=== PATIENT | female | born 1950 | race Caucasian/White ===

== ENCOUNTER 2016-09-13 08:34 | Day surgery (SDC) | payer BC ==
[2016-09-13] MEDS ORDERED: LACTATED RINGERS 1,000 ML IV ONE (10:00)
[2016-09-13] MEDS ORDERED: fentaNYL 100 MCG/2 ML VIAL IVP ONE (10:30)
[2016-09-13] MEDS ORDERED: ONDANSETRON 4 MG/2 ML VIAL IVP ONE (10:30)
[2016-09-13] MEDS ORDERED: MIDAZOLAM 2 MG/2 ML VIAL IVP ONE (10:30)
[2016-09-13] MEDS ORDERED: SIMETHICONE 40 MG/0.6 ML 30 ML BOTTLE PO ONE (10:43)
== END 2016-09-13 08:35 | disposition home or self-care (01) ==
PROC: 0DB68ZX Excision of Stomach, Via Natural or Artificial Opening Endoscopic, Diagnostic (ICD-10-PCS; principal; 2016-09-13 09:45)
DX: C16.9 Malignant neoplasm of stomach, unspecified (principal); K31.7 Polyp of stomach and duodenum; F17.210 Nicotine dependence, cigarettes, uncomplicated; I10 Essential (primary) hypertension; I25.10 Atherosclerotic heart disease of native coronary artery without angina pectoris
CPT/HCPCS: 43251; 87081; A9270; J7120

== ENCOUNTER 2017-02-01 20:11 | Outpatient (CLI) | payer BC ==
--- NOTE | 2017-02-02 10:00 | XRAY Report ---
THREE VIEW RIGHT HAND: 02/01/2017 CLINICAL INDICATION: Pain, swelling. FINDINGS: AP, lateral, and oblique views of the right hand demonstrate osteoarthritis of the interph alangeal joints. There is no evidence of acute fracture or dislocation. No radiopaque foreign body is seen in the soft tissues. IMPRESSION: OSTEOARTHRITIS. JOB #: [id number] EXT JOB #:[id number]
== END 2017-02-01 20:12 | disposition home or self-care (01) ==
LOC: DI 20:11
PROVIDERS: ATTEND Family Medicine
DX: M19.041 Primary osteoarthritis, right hand (principal)

== ENCOUNTER 2017-06-06 12:30 | Emergency (ER) | payer BC ==
--- NOTE | 2017-06-06 13:34 | XRAY Preliminary Report ---
Exam: XR SHOULDER 3 VIEW LT IMPRESSION: 1. No acute osseous abnormalities. Normal alignment. 2. Degenerative changes of the left shoulder. [facility] SITE ID: [id number]
--- NOTE | 2017-06-06 13:35 | XRAY Preliminary Report ---
Exam: XR ELBOW 3 VIEW LT IMPRESSION: 1. No acute osseous abnormalities. 2. Degenerative changes of the left elbow. [facility] SITE ID: [id number]
--- NOTE | 2017-06-06 13:36 | XRAY Report ---
EXAM: LEFT SHOULDER RADIOGRAPHY EXAM DATE: 06/06/2017 01:26 PM. CLINICAL HISTORY: Left shoulder pain. Fall. COMPARISON: None. TECHNIQUE: 3 views. FINDINGS: Bones: No acute fracture or bony lesion. Mild degenerative spurring. Type 1/2 acromion. Joints: Narrowing of the left acromioclavicular and left glenohumeral joint. No dislocation. Soft tissues: The visualized hemithorax is unremarkable. No soft tissue swelling. IMPRESSION: 1. No acute osseous abnormalities. Normal alignment. 2. Degenerative changes of the left shoulder. [facility] Referring Provider Line: [phone] SITE ID: [id number]
--- NOTE | 2017-06-06 13:37 | XRAY Report ---
EXAM: LEFT ELBOW RADIOGRAPHY EXAM DATE: 06/06/2017 01:26 PM. CLINICAL HISTORY: Left elbow pain. Fall. COMPARISON: None. TECHNIQUE: 3 views. FINDINGS: Bones: No acute fracture or bony lesion. Degenerative osteophyte formation. Posterior olecranon enthe sophyte. Calcification along the medial distal humeral epicondyle may represent an enthesophyte or os teophyte. Bony excrescence along the proximal radial shaft. No erosions. Joints: Normal alignment. Mild joint space narrowing. No elbow effusion. Soft Tissues: Soft tissue swelling. No radiopaque foreign bodies. IMPRESSION: 1. No acute osseous abnormalities. 2. Degenerative changes of the left elbow. [facility] Referring Provider Line: [phone] SITE ID: [id number]
--- NOTE | 2017-06-06 14:41 | ED Physician Documentation ---
History of Present Illness - Stated complaint Stated Complaint: NECK/LEFT ARM PX-GLF - Chief complaint Chief Complaint: Trauma Ext - History obtained from History obtained from: Patient, Family - History of Present Illness Timing: Yesterday Pain level max: 4 Pain level now: 4 - Additonal information Additional information: Patient is a 67-year-old female who presents to the emergency department with left shoulder and left elbow pain after tripping and slipping in water yesterday at home. Pain is improved with ibuprofen and rest. Worse with movement. No head injury. Did not lose consciousness. No headache. No vomiting. No numbness or tingling. Review of Systems Respiratory: denies: Cough GI: denies: Vomiting Musculoskeletal: denies: Neck pain, Back pain Neurologic: denies: Focal weakness, Numbness, Confused, Altered mental status, Headache, Head injury, LOC PD PAST MEDICAL HISTORY - Past Medical History Past Medical History: Yes Cardiovascular: Hypertension, Murmur Respiratory: None Neuro: Other Endocrine/Autoimmune: Type 2 diabetes, HyPOthyroidism GI: GI bleed, Colon polyps, Other : None HEENT: Other Psych: None Musculoskeletal: Osteoarthritis Derm: Other Other Past Medical History: [place]-left sided facial droop - Past Surgical History Past Surgical History: Yes General: Appendectomy, Colonoscopy, EGD 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 - Present Medications Home Medications: Ambulatory Orders Medication Instructions Recorded Confirmed Magnesium 240 mg PO DAILY 12/28/12 06/06/17 Vitamin B Complex [B Complex] 1 each PO DAILY 12/28/12 07/21/15 Metoprolol Tartrate [Lopressor] 25 mg PO DAILY 12/30/14 06/06/17 amLODIPine [Norvasc] 5 mg PO DAILY 12/30/14 06/06/17 Dexamethasone [Decadron] 4 mg PO DAILY PRN 01/13/15 06/06/17 Cyclobenzaprine [Flexeril] 10 mg PO TID PRN #20 tablet 06/22/16 06/06/17 Ibuprofen [Motrin] 800 mg PO Q8H PRN #30 tablet 06/22/16 06/06/17 Levothyroxine [Synthroid] 1 DAILY 09/13/16 - Allergies Allergies/Adverse Reactions: Allergies Allergy/AdvReac Type Severity Reaction Status Date / Time nifedipine Allergy Intermediate swelling Verified 12/28/12 09:57 lisinopril Allergy Respiratory Verified 12/30/14 21:24 prednisone Allergy Itching Verified 12/30/14 21:24 - Social History Does the pt smoke?: No Smoking Status: Never smoker Does the pt drink ETOH?: No Does the pt have substance abuse?: No - Immunizations Immunizations are current?: Yes - POLST Patient has POLST: No PD ED PE NORMAL - Vitals Vital signs reviewed: Yes - General General: Alert and oriented X 3, No acute distress, Well developed/nourished - HEENT HEENT: PERRL, Ears normal, Moist mucous membranes, Pharynx benign - Neck Neck: Supple, no meningeal sign, No bony TTP - Cardiac Cardiac: RRR, Strong equal pulses - Respiratory Respiratory: No respiratory distress, Clear bilaterally - Abdomen Abdomen: Soft, Non tender, Non distended - Back Back: No spinal TTP - Derm Derm: Warm and dry - Extremities Extremities: No deformity, Other (Mild diffuse tenderness about the left elbow and left shoulder. No point tenderness. Worse with active range of motion and passive range of motion. Otherwise normal examination of the shoulder, spine and left upper extremity. No tenderness over the scapula. Neurovascularly intact including the axillary nerve) - Neuro Neuro: Alert and oriented X 3 - Psych Psych: Normal mood, Normal affect Results - Vitals Vitals: Vital Signs - 24 hr 06/06/17 06/06/17 12:41 14:50 Temperature 36.4 C L 36.0 C L Heart Rate 85 79 Respiratory 20 18 Rate Blood Pressure 165/87 H 145/80 H O2 Saturation 97 96 Oxygen O2 Source Room air - Rads (name of study) Left shoulder x-ray Radiology: Prelim report reviewed, EMP read contemporaneously, See rad report ( No acute bony abnormality) Left elbow x-ray Radiology: Prelim report reviewed, EMP read contemporaneously, See rad report ( No acute abnormality) PD MEDICAL DECISION MAKING - ED course Complexity details: reviewed results, re-evaluated patient, considered differential, d/w patient ED course: Patient is a 67-year-old female who has left elbow and left shoulder pain after a fall at home. No acute findings on x-ray. Placed in a sling for comfort. She states she will use Motrin and Tylenol as needed for pain. She is well- appearing, nontoxic. Neurovascularly intact. No neck or back discomfort or tenderness. Patient counseled regarding signs and symptoms for which I believe and urgent re-evaluation would be necessary. Patient with good understanding of and agreement to plan and is comfortable going home at this time This document was made in part using voice recognition software. While efforts are made to proofread this document, sound alike and grammatical errors may occur. No head injury Departure - Departure Disposition: 01 Home, Self Care Clinical Impression: Muscle strain Shoulder contusion Qualifiers: Encounter type: initial encounter Laterality: left Qualified Code(s): S40.012A - Contusion of left shoulder, initial encounter Elbow contusion Qualifiers: Encounter type: initial encounter Laterality: left Qualified Code(s): S50.02XA - Contusion of left elbow, initial encounter Condition: Good Instructions: ED Strain Muscle Ext Follow-Up: Amber Escoto MD [Primary Care Provider] - Within 1 week Comments: Use the sling for the next 2-3 days to help with your pain. Return if you worsen. Your xrays are normal today. Discharge Date/Time: 06/06/17 14:57
[2017-06-06 14:50] VITALS: BP 145/80
== END 2017-06-06 14:57 | disposition home or self-care (01) ==
LOC: ED 12:30
DX: S40.012A Contusion of left shoulder, initial encounter (principal); S50.02XA Contusion of left elbow, initial encounter; T14.8XXA Other injury of unspecified body region, initial encounter; W01.0XXA Fall on same level from slipping, tripping and stumbling without subsequent striking against object, initial encounter; Y92.019 Unspecified place in single-family (private) house as the place of occurrence of the external cause; I10 Essential (primary) hypertension; E11.9 Type 2 diabetes mellitus without complications; E03.9 Hypothyroidism, unspecified; M19.90 Unspecified osteoarthritis, unspecified site; Z86.010 Personal history of colon polyps
CPT/HCPCS: 99283

== ENCOUNTER 2017-08-23 14:57 | Outpatient (CLI) | payer BC | END 2017-08-23 14:58 | disposition short-term general hospital (02) | LOC: EMS 14:57 | PROVIDERS: ATTEND Surgery | DX: R07.9 Chest pain, unspecified (principal); R11.0 Nausea; R53.1 Weakness; R42 Dizziness and giddiness | CPT/HCPCS: A0425; A0427 ==

== ENCOUNTER 2018-03-03 12:53 | Outpatient (CLI) | payer BC ==
--- NOTE | 2018-03-04 14:03 | XRAY Report ---
Reason: sudden onset neck pain, swelling,spasms waking at night Procedure Date: 03/03/2018 Accession Number: [id number] / [id number] Procedure: XR - Cervical Spine 2 View CPT Code: FULL RESULT: EXAM: CERVICAL SPINE RADIOGRAPHY EXAM DATE: 03/03/2018 01:33 PM. CLINICAL HISTORY: Sudden onset neck pain, swelling,spasms waking at night. COMPARISONS: None. TECHNIQUE: 3 views. FINDINGS: Straightening of the cervical spine, similar in appearance when compared to 06/26/2016 radiographs. Mild degenerative diskogenic changes at the C5-C6 and C6-C7 levels, stable. The prevertebral soft tissues appear unremarkable. IMPRESSION: Straightening of the cervical spine and mild degenerative changes, stable when compared to 06/26/2016. [facility]
== END 2018-03-03 12:54 | disposition home or self-care (01) ==
LOC: DI 12:53
PROVIDERS: ATTEND Family Medicine
DX: M47.812 Spondylosis without myelopathy or radiculopathy, cervical region (principal)
CPT/HCPCS: 72040

== ENCOUNTER 2018-08-25 14:42 | Outpatient (CLI) | payer BC ==
[2018-08-25 17:32] LABS: BASOPHILS # (AUTO) 0.1 10^3/uL (0.0-0.1); BASOPHILS % (AUTO) 1.2 %; EOSINOPHILS # (AUTO) 0.2 10^3/uL (0.0-0.7); EOSINOPHILS % (AUTO) 2.7 %; HGB - HEMOGLOBIN 14.8 g/dL (12.0-16.0); LYMPHOCYTES # (AUTO) 3.5 10^3/uL (1.5-3.5); MEAN CORPUSCULAR HEMOGLOBIN 29.5 pg (27.0-31.0); MEAN CORPUSCULAR HGB CONC 33.3 g/dL (32.0-36.0); MEAN CORPUSCULAR VOLUME 88.7 fL (81.0-99.0); MEAN PLATELET VOLUME 8.5 fL (7.9-10.8); MONOCYTES # (AUTO) 0.7 10^3/uL (0.0-1.0); MONOCYTES % (AUTO) 8.6 %; NEUTROPHILS # (AUTO) 3.8 10^3/uL (1.5-6.6); NEUTROPHILS % (AUTO) 45.5 %; PLT - PLATELET COUNT 370 10^3/uL (130-450); RED CELL DISTRIBUTION WIDTH 13.6 % (12.0-15.0); WHITE BLOOD COUNT 8.4 x10^3/uL (4.8-10.8)
[2018-08-25 17:48] LABS: ALBUMIN 4.6 g/dL (3.2-5.5); ALBUMIN/GLOBULIN RATIO 1.1 (1.0-2.2); BILIRUBIN,TOTAL 0.8 mg/dL (0.2-1.0); CALCIUM 9.4 mg/dL (8.5-10.3); CREATININE 0.6 mg/dL (0.4-1.0); TOTAL PROTEIN 8.6 g/dL (6.7-8.2)
[2018-08-25 18:03] LABS: THYROID STIMULATING HORMONE 4.21 uIU/mL (0.34-5.60)
[2018-08-25 18:04] LABS: FREE T4 (FREE THYROXINE) 0.67 ng/dL (0.58-1.64)
[2018-08-25 18:08] LABS: TOTAL T3 1.37 ng/mL (0.87-1.78)
[2018-08-25 18:46] LABS: HB2 TOTAL 16.4 g/dL; HEMOGLOBIN A1C 0.9 g/dL; HEMOGLOBIN A1C % 7.2 % (4.6-6.2)
== END 2018-08-25 14:43 | disposition home or self-care (01) ==
LOC: LAB.F 14:42
PROVIDERS: ATTEND Family Medicine
DX: E10.9 Type 1 diabetes mellitus without complications (principal); E03.9 Hypothyroidism, unspecified; D64.9 Anemia, unspecified; R53.83 Other fatigue
CPT/HCPCS: 36415; 80053; 82043; 82626; 83036; 84439; 84443; 84480; 84481; 85025

== ENCOUNTER 2019-03-22 12:27 | Outpatient (CLI) | payer BC ==
[2019-03-22 17:32] LABS: HB2 TOTAL 14.5 g/dL; HEMOGLOBIN A1C 0.7 g/dL; HEMOGLOBIN A1C % 6.6 % (4.6-6.2)
[2019-03-22 17:36] LABS: CEA - CARCINOEMBRYONIC ANTIGEN 2.2 ng/mL
[2019-03-22 17:38] LABS: THYROID STIMULATING HORMONE 2.83 uIU/mL (0.34-5.60)
[2019-03-22 17:39] LABS: FREE T4 (FREE THYROXINE) 0.74 ng/dL (0.58-1.64)
[2019-03-22 17:43] LABS: TOTAL T3 1.33 ng/mL (0.87-1.78)
[2019-03-22 17:44] LABS: FERRITIN 45.7 ng/mL (11.0-306.8)
== END 2019-03-22 12:28 | disposition home or self-care (01) ==
LOC: LAB.S 12:27
PROVIDERS: ATTEND Family Medicine
DX: E03.9 Hypothyroidism, unspecified (principal); R53.83 Other fatigue; E11.9 Type 2 diabetes mellitus without complications; C16.9 Malignant neoplasm of stomach, unspecified; E55.9 Vitamin D deficiency, unspecified; D64.9 Anemia, unspecified
CPT/HCPCS: 36415; 82306; 82378; 82626; 82728; 83036; 84439; 84443; 84480; 84481

== ENCOUNTER 2019-12-14 21:21 | Emergency (ER) | payer BC ==
--- NOTE | 2019-12-14 21:23 | ED Physician Documentation ---
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 Presents today with worsening abdominal pain and distention.) Review of Systems Constitutional: reports: Reviewed and negative Eyes: reports: Reviewed and negative Ears: reports: Reviewed and negative Nose: reports: Reviewed and negative Throat: reports: Reviewed and negative Cardiac: reports: Reviewed and negative Respiratory: reports: Reviewed and negative GI: reports: Abdominal Pain : reports: Reviewed and negative Skin: reports: Reviewed and negative Musculoskeletal: reports: Reviewed and negative Neurologic: reports: Reviewed and negative Psychiatric: reports: Reviewed and negative Endocrine: reports: Reviewed and negative Immunocompromised: reports: Reviewed and negative PD PAST MEDICAL HISTORY - Past Medical History Cardiovascular: Hypertension, Murmur Respiratory: None Endocrine/Autoimmune: Type 2 diabetes, HyPOthyroidism GI: GI bleed, Colon polyps, Other : None HEENT: Other Psych: None Musculoskeletal: Osteoarthritis Derm: Other - Past Surgical History Past Surgical History: Yes General: Appendectomy, Colonoscopy, EGD 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 - Present Medications Home Medications: Ambulatory Orders Medication Instructions Recorded Confirmed Magnesium 240 mg PO DAILY 12/28/12 06/06/17 Vitamin B Complex [B Complex] 1 each PO DAILY 12/28/12 07/21/15 Metoprolol Tartrate [Lopressor] 25 mg PO DAILY 12/30/14 06/06/17 amLODIPine [Norvasc] 5 mg PO DAILY 12/30/14 06/06/17 dexAMETHasone [Decadron] 4 mg PO DAILY PRN 01/13/15 06/06/17 Cyclobenzaprine [Flexeril] 10 mg PO TID PRN #20 tablet 06/22/16 06/06/17 Ibuprofen [Motrin] 800 mg PO Q8H PRN #30 tablet 06/22/16 06/06/17 Levothyroxine [Synthroid] 1 DAILY 09/13/16 Hydrocodone/Acetaminophen [[place] 1 each PO Q6HR PRN #14 tablet 12/15/19 5-325 Tablet] Ondansetron Odt [Zofran Odt] 4 mg TL Q6H PRN #10 tablet 12/15/19 - Allergies Allergies/Adverse Reactions: Allergies Allergy/AdvReac Type Severity Reaction Status Date / Time nifedipine Allergy Intermediate swelling Verified 12/14/19 21:28 lisinopril Allergy Respiratory Verified 12/14/19 21:28 prednisone Allergy Itching Verified 12/14/19 21:28 - Social History Does the pt smoke?: No Smoking Status: Never smoker Does the pt drink ETOH?: No Does the pt have substance abuse?: No - Immunizations Immunizations are current?: Yes - POLST Patient has POLST: No PD ED PE NORMAL - Vitals Vital signs reviewed: Yes - General General: Alert and oriented X 3, No acute distress - HEENT HEENT: PERRL - Neck Neck: Supple, no meningeal sign - Cardiac Cardiac: RRR, No murmur - Respiratory Respiratory: Clear bilaterally - Abdomen Abdomen: Normal bowel sounds, Soft, Other (There is approximately 4 cm palpable mass in the epigastrium.There is also hepatomegaly noted.There is no midline abdominal pulsatile mass) - Back Back: No CVA TTP, No spinal TTP - Derm Derm: Warm and dry - Extremities Extremities: No deformity - Neuro Neuro: Alert and oriented X 3, educational advisor 2-12 intact, No motor deficit, No sensory deficit, Normal speech - Psych Psych: Normal mood, Normal affect Results - Vitals Vitals: Vital Signs - 24 hr 12/14/19 12/14/19 12/14/19 21:26 21:50 22:38 Temperature 37.2 C 37.4 C Heart Rate 102 H 99 99 Respiratory 18 19 18 Rate Blood Pressure 145/77 H 158/86 H 153/84 H O2 Saturation 97 96 97 12/14/19 12/15/19 12/15/19 23:30 01:39 02:46 Temperature Heart Rate 84 87 108 H Respiratory 18 20 21 Rate Blood Pressure 140/74 H 146/79 H 139/79 H O2 Saturation 97 94 96 Oxygen O2 Source Room air - Labs Labs: Laboratory Tests 12/14/19 12/14/19 12/14/19 22:07 22:07 22:07 WBC 10.6 RBC 5.28 Hgb 14.6 Hct 46.0 MCV 87.1 MCH 27.7 MCHC 31.7 L RDW 13.8 Plt Count 424 MPV 9.1 Neut # (Auto) 7.2 H Lymph # (Auto) 2.1 Calvert # (Auto) 1.1 H Eos # (Auto) 0.1 Baso # (Auto) 0.1 Absolute Nucleated RBC 0.00 Nucleated RBC % 0.0 PT 13.9 H INR 1.2 APTT 32.7 Sodium 137 Potassium 3.7 Chloride 101 Carbon Dioxide 28 Anion Gap 8.0 BUN 15 Creatinine 0.6 Estimated GFR (MDRD) 99 Glucose 113 H Lactic Acid Calcium 9.3 Magnesium 2.4 Total Bilirubin 1.5 H Direct Bilirubin 0.3 AST 53 H ALT 35 Alkaline Phosphatase 258 H Total Creatine Kinase 108 Troponin I High Sens B-Natriuretic Peptide Total Protein 8.8 H Albumin 4.2 Globulin 4.6 H Lipase 38 TSH Urine Color Urine Clarity Urine pH Ur Specific [place] Urine Protein Urine Glucose (UA) Urine Ketones Urine Occult Blood Urine Nitrite Urine Bilirubin Urine Urobilinogen Ur Leukocyte Esterase Ur Microscopic Review Urine Culture Comments Urine Opiates Screen Ur Oxycodone Screen Urine Methadone Screen Ur Propoxyphene Screen Ur Barbiturates Screen Ur Tricyclics Screen Ur Phencyclidine Scrn Ur Amphetamine Screen U Methamphetamines Scrn U Benzodiazepines Scrn Urine Cocaine Screen U Cannabinoids Screen Ethyl Alcohol < 5.0 12/14/19 12/14/19 12/14/19 22:07 22:07 22:07 WBC RBC Hgb Hct MCV MCH MCHC RDW Plt Count MPV Neut # (Auto) Lymph # (Auto) [place]vert # (Auto) Eos # (Auto) Baso # (Auto) Absolute Nucleated RBC Nucleated RBC % PT INR APTT Sodium Potassium Chloride Carbon Dioxide Anion Gap BUN Creatinine Estimated GFR (MDRD) Glucose Lactic Acid 1.2 Calcium Magnesium Total Bilirubin Direct Bilirubin AST ALT Alkaline Phosphatase Total Creatine Kinase Troponin I High Sens B-Natriuretic Peptide 36 Total Protein Albumin Globulin Lipase TSH 2.57 Urine Color Urine Clarity Urine pH Ur Specific [place] Urine Protein Urine Glucose (UA) Urine Ketones Urine Occult Blood Urine Nitrite Urine Bilirubin Urine Urobilinogen Ur Leukocyte Esterase Ur Microscopic Review Urine Culture Comments Urine Opiates Screen Ur Oxycodone Screen Urine Methadone Screen Ur Propoxyphene Screen Ur Barbiturates Screen Ur Tricyclics Screen Ur Phencyclidine Scrn Ur Amphetamine Screen U Methamphetamines Scrn U Benzodiazepines Scrn Urine Cocaine Screen U Cannabinoids Screen Ethyl Alcohol 12/14/19 12/14/19 22:07 22:24 WBC RBC Hgb Hct MCV MCH MCHC RDW Plt Count MPV Neut # (Auto) Lymph # (Auto) [place] # (Auto) Eos # (Auto) Baso # (Auto) Absolute Nucleated RBC Nucleated RBC % PT INR APTT Sodium Potassium Chloride Carbon Dioxide Anion Gap BUN Creatinine Estimated GFR (MDRD) Glucose Lactic Acid Calcium Magnesium Total Bilirubin Direct Bilirubin AST ALT Alkaline Phosphatase Total Creatine Kinase Troponin I High Sens 3.9 B-Natriuretic Peptide Total Protein Albumin Globulin Lipase TSH Urine Color YELLOW Urine Clarity CLEAR Urine pH 7.0 Ur Specific [place] 1.010 Urine Protein NEGATIVE Urine Glucose (UA) NEGATIVE Urine Ketones NEGATIVE Urine Occult Blood NEGATIVE Urine Nitrite NEGATIVE Urine Bilirubin NEGATIVE Urine Urobilinogen 0.2 (NORMAL) Ur Leukocyte Esterase NEGATIVE Ur Microscopic Review NOT INDICATED Urine Culture Comments NOT INDICATED Urine Opiates Screen NEGATIVE Ur Oxycodone Screen NEGATIVE Urine Methadone Screen NEGATIVE Ur Propoxyphene Screen NEGATIVE Ur Barbiturates Screen NEGATIVE Ur Tricyclics Screen NEGATIVE Ur Phencyclidine Scrn NEGATIVE Ur Amphetamine Screen NEGATIVE U Methamphetamines Scrn NEGATIVE U Benzodiazepines Scrn NEGATIVE Urine Cocaine Screen NEGATIVE U Cannabinoids Screen NEGATIVE Ethyl Alcohol PD MEDICAL DECISION MAKING - ED course Complexity details: reviewed results, re-evaluated patient, considered differential (History and exam are concerning for a gastric mass with liver mets. Imaging does confirm this. Her imaging shows a malignant mass in the gastric wall measuring at least 4 cm and findings highly suspicious for diffuse hepatic metastasis and malignant peridiaphragmatic adenopathy.), d/w patient (Had a lengthy discussion with this patient about her imaging results that are concerning for metastatic cancer to the liver from the gastric wall. I did offer to admit her and/or transfer her to a higher level of care she wants to be discharged.She assumes all responsibility and liability.), other (I had a lengthy discussion with her regarding her imaging results I did offer admission to this hospital I did also offer to transfer the patient to higher level of care that has inpatient oncology. The patient states that she wants to be discharged home and will call her primary care provider prov) Departure - Departure Disposition: 01 Home, Self Care Clinical Impression: Gastric mass, Liver metastases Condition: Stable Instructions: Liver Follow-Up: Amber Escoto MD [Primary Care Provider] - Tomorrow Prescriptions: Hydrocodone/Acetaminophen [[place] 5-325 Tablet] 1 each PO Q6HR PRN #14 tablet PRN Reason: Pain Ondansetron Odt [Zofran Odt] 4 mg TL Q6H PRN #10 tablet PRN Reason: Nausea / Vomiting Comments: Follow-up with your primary care provider on Tuesday.Follow-up with an oncologist on Tuesday. Your CAT scan shows an impression of a malignant mass in the gastric wall measuring at least 4 cm and findings highly suspicious for diffuse hepatic metastasis and malignant bill-diaphragmatic adenopathy.
[2019-12-14] MEDS ORDERED: SODIUM CHLORIDE 0.9% 1,000 ML IV STA (21:55)
[2019-12-14] MEDS ORDERED: MORPHINE 2 MG/ML CARPUJECT IVP STA (21:55)
[2019-12-14] MEDS ORDERED: ONDANSETRON 4 MG/2 ML VIAL IVP STA (21:55)
[2019-12-14 22:13] LABS: BASOPHILS # (AUTO) 0.1 10^3/uL (0.0-0.1); EOSINOPHILS # (AUTO) 0.1 10^3/uL (0.0-0.7); EOSINOPHILS % (AUTO) 0.6 %; HGB - HEMOGLOBIN 14.6 g/dL (12.0-16.0); LYMPHOCYTES # (AUTO) 2.1 10^3/uL (1.5-3.5); LYMPHOCYTES % (AUTO) 19.4 %; MEAN CORPUSCULAR HEMOGLOBIN 27.7 pg (27.0-31.0); MEAN CORPUSCULAR HGB CONC 31.7 g/dL (32.0-36.0); MEAN CORPUSCULAR VOLUME 87.1 fL (81.0-99.0); MEAN PLATELET VOLUME 9.1 fL (7.9-10.8); MONOCYTES # (AUTO) 1.1 10^3/uL (0.0-1.0); MONOCYTES % (AUTO) 10.7 %; NEUTROPHILS # (AUTO) 7.2 10^3/uL (1.5-6.6); NEUTROPHILS % (AUTO) 67.9 %; PLT - PLATELET COUNT 424 10^3/uL (130-450); RED BLOOD COUNT 5.28 10^6/uL (4.20-5.40); RED CELL DISTRIBUTION WIDTH 13.8 % (12.0-15.0); WHITE BLOOD COUNT 10.6 x10^3/uL (4.8-10.8)
[2019-12-14 22:22] LABS: INR 1.2 (0.8-1.2); PT - PROTHROMBIN TIME 13.9 secs (9.9-12.6)
[2019-12-14 22:29] LABS: PARTIAL THROMBOPLASTIN TIME 32.7 secs (24.9-33.3)
[2019-12-14 22:30] LABS: MUDS CUTOFF CONCENTRATIONS CUTOFF CONC BELOW:
[2019-12-14 22:31] LABS: BILIRUBIN,URINE NEGATIVE (NEGATIVE); GLUCOSE, URINE (UA) NEGATIVE (NEGATIVE); KETONES,URINE (UA) NEGATIVE (NEGATIVE); LEUKOCYTE ESTERASE, URINE NEGATIVE (NEGATIVE); NITRITE,URINE NEGATIVE (NEGATIVE); OCCULT BLOOD,URINE NEGATIVE (NEGATIVE); PROTEIN,URINE NEGATIVE (NEGATIVE); UROBILINOGEN,URINE 0.2 (NORMAL) E.U./dL (NORMAL)
[2019-12-14 22:32] LABS: CLARITY,URINE CLEAR (CLEAR)
[2019-12-14 22:33] LABS: ALBUMIN 4.2 g/dL (3.2-5.5); ALKALINE PHOSPHATASE 258 IU/L (42-121); ALT ALANINE AMINOTRANSFERASE 35 IU/L (10-60); AST ASPARTATE AMINOTRANSFERASE 53 IU/L (10-42); BILIRUBIN,DIRECT 0.3 mg/dL (0.1-0.5); BILIRUBIN,TOTAL 1.5 mg/dL (0.2-1.0); BUN - BLOOD UREA NITROGEN 15 mg/dL (6-20); CALCIUM 9.3 mg/dL (8.5-10.3); CARBON DIOXIDE - CO2 28 mmol/L (21-32); CHLORIDE 101 mmol/L (101-111); CK- CREATINE KINASE 108 IU/L (22-269); CREATININE 0.6 mg/dL (0.4-1.0); GLUCOSE 113 mg/dL (70-100); LIPASE 38 U/L (22-51); MAGNESIUM 2.4 mg/dL (1.7-2.8); SODIUM 137 mmol/L (135-145); TOTAL PROTEIN 8.8 g/dL (6.7-8.2)
[2019-12-14 22:42] LABS: AMPHETAMINE SCREEN,URINE NEGATIVE (NEGATIVE); BENZODIAZEPINES SCREEN, URINE NEGATIVE (NEGATIVE); COCAINE SCREEN URINE NEGATIVE (NEGATIVE); METHADONE SCREEN, URINE NEGATIVE (NEGATIVE); METHAMPHETAMINES SCREEN, URINE NEGATIVE (NEGATIVE); OPIATE SCREEN, URINE NEGATIVE (NEGATIVE); OXYCODONE SCREEN, URINE NEGATIVE (NEGATIVE); PROPOXYPHENE SCREEN, URINE NEGATIVE (NEGATIVE); TRICYCLIC ANTIDEPRESSANT,URINE NEGATIVE (NEGATIVE)
[2019-12-14] MEDS ORDERED: IOVERSOL 320 100 ML VIAL IVP ONE (23:58)
[2019-12-15] MEDS ORDERED: IOVERSOL 320 100 ML VIAL IVP ONE (01:55)
[2019-12-15 02:47] VITALS: BP 139/79
--- NOTE | 2019-12-15 09:18 | XRAY Report ---
PROCEDURE: Chest 1 View X-Ray INDICATIONS: cp TECHNIQUE: One view of the chest was acquired. COMPARISON: 01/16/2013 FINDINGS: Surgical changes and devices: None. Lungs and pleura: No pleural effusions or pneumothorax. Lungs are clear. Mediastinum: Mildly tortuous thoracic aorta is seen. Heart size is enlarged. Bones and chest wall: No suspicious bony lesions. Overlying soft tissues appear unremarkable. IMPRESSION: Mild cardiomegaly. No acute pulmonary pathology. Reviewed by: Radhames Braxton MD on 12/15/2019 9:17 AM PDT Approved by: Radhames Braxton MD on 12/15/2019 9:17 AM PDT Station ID: [id number]
--- NOTE | 2019-12-15 09:47 | CT Report ---
PROCEDURE: Abdomen/Pelvis W INDICATIONS: abd pain CONTRAST: IV CONTRAST: Optiray 320 ml: 100 PO CONTRAST: *NO PO CONTRAST TECHNIQUE: After the administration of oral and intravenous contrast, 5 mm thick sections acquired from the diap hragms to the symphysis. 5 mm thick coronal and sagittal reformats were acquired. For radiation dos e reduction, the following was used: automated exposure control, adjustment of mA and/or kV accordin g to patient size. COMPARISON: None. FINDINGS: Image quality: Excellent. ABDOMEN: Lung bases: Atelectasis in posterior aspect of bilateral lower lobes are seen. Heart size is normal. Solid organs: Liver is enlarged and measures 21 cm in length. Hypodense lesions are seen scattered th roughout liver parenchyma measures up to 11 x 9 cm in size in right hepatic lobe and up to 6.9 x 6.1 cm in size in left hepatic lobe Spleen is normal in size and enhancement. Gallbladder is within eric l limits. Biliary system is non dilated. Pancreas enhances normally. No adrenal nodules. Kidneys demonstrate normal size and enhancement, without hydronephrosis. 4.6 cm right midpole renal cyst is s een. Peritoneum and bowel: There is an ill-defined hypodense lesion involving anterior wall of greater cur vature of stomach measures approximately 3.6 x 4.3 cm in size. No bowel obstruction. No small bowel o r colon wall thickening. No free fluid of free air. Nodes and vessels: No retroperitoneal lymphadenopathy by size criteria. 1.8 cm peridiaphragmatic lymp h node is seen. Additional enlarged lymph nodes are also noted anterior to the liver. Aorta and infer ior vena cava are normal in size. Miscellaneous: No ventral hernias. PELVIS: Genitourinary: Bladder wall thickness is normal. Miscellaneous: No inguinal hernias or adenopathy. Bones: No suspicious bony lesions. No vertebral body compression fractures. IMPRESSION: 1. Finding is concerning for malignant mass involving anterior wall of greater curvature of the stoma ch, GI correlation is recommended. 2. Extensive liver metastases as above. 3. Apparent diaphragmatic lymphadenopathy likely represent metastatic disease. 4. Bibasilar dependent atelectasis. No significant discrepancies. Reviewed by: Radhames Braxton MD on 12/15/2019 9:46 AM PDT Approved by: Radhames Braxton MD on 12/15/2019 9:46 AM PDT Station ID: [id number]
== END 2019-12-15 03:05 | disposition home or self-care (01) ==
LOC: ED 21:21
DX: C16.8 Malignant neoplasm of overlapping sites of stomach (principal); C78.7 Secondary malignant neoplasm of liver and intrahepatic bile duct; C77.1 Secondary and unspecified malignant neoplasm of intrathoracic lymph nodes; I10 Essential (primary) hypertension; E11.9 Type 2 diabetes mellitus without complications
CPT/HCPCS: 36415; 71045; 74177; 80048; 80076; 80306; 80320; 81003; 82550; 83605; 83690; 83735; 83880; 84443; 84484; 85025; 85610; 85730; 93005; 96360; 99283; 99284; Q9967; 81001; 87086

== ENCOUNTER 2020-01-07 12:31 | Outpatient (CLI) | payer BC ==
[2020-01-07 15:10] LABS: BASOPHILS # (AUTO) 0.1 10^3/uL (0.0-0.1); BASOPHILS % (AUTO) 1.5 %; EOSINOPHILS # (AUTO) 0.3 10^3/uL (0.0-0.7); EOSINOPHILS % (AUTO) 3.8 %; HGB - HEMOGLOBIN 14.4 g/dL (12.0-16.0); LYMPHOCYTES # (AUTO) 1.4 10^3/uL (1.5-3.5); LYMPHOCYTES % (AUTO) 17.2 %; MEAN CORPUSCULAR VOLUME 87.1 fL (81.0-99.0); MEAN PLATELET VOLUME 9.8 fL (7.9-10.8); MONOCYTES % (AUTO) 12.2 %; NEUTROPHILS # (AUTO) 5.1 10^3/uL (1.5-6.6); PLT - PLATELET COUNT 565 10^3/uL (130-450); RED BLOOD COUNT 5.33 10^6/uL (4.20-5.40); RED CELL DISTRIBUTION WIDTH 14.8 % (12.0-15.0); WHITE BLOOD COUNT 7.9 x10^3/uL (4.8-10.8)
[2020-01-07 15:58] LABS: PARTIAL THROMBOPLASTIN TIME 30.1 secs (24.9-33.3)
[2020-01-07 16:03] LABS: ALBUMIN 3.5 g/dL (3.2-5.5); ALBUMIN/GLOBULIN RATIO 0.7 (1.0-2.2); BILIRUBIN,TOTAL 1.2 mg/dL (0.2-1.0); CALCIUM 9.6 mg/dL (8.5-10.3); CREATININE 0.7 mg/dL (0.4-1.0); TOTAL PROTEIN 8.6 g/dL (6.7-8.2)
[2020-01-07 16:10] LABS: INR 1.2 (0.8-1.2); PT - PROTHROMBIN TIME 13.4 secs (9.9-12.6)
[2020-01-07 16:12] LABS: THYROID STIMULATING HORMONE 2.73 uIU/mL (0.34-5.60)
[2020-01-07 16:13] LABS: FREE T3 3.41 pg/mL (2.5-3.9)
[2020-01-07 16:14] LABS: FREE T4 (FREE THYROXINE) 0.9 ng/dL (0.58-1.64)
[2020-01-07 16:19] LABS: TOTAL T3 1.25 ng/mL (0.87-1.78)
[2020-01-07 16:20] LABS: FERRITIN 81.3 ng/mL (11.0-306.8); HB2 TOTAL 15.4 g/dL; HEMOGLOBIN A1C 0.58 g/dL; HEMOGLOBIN A1C % 5.6 % (4.6-6.2)
== END 2020-01-07 12:32 | disposition home or self-care (01) ==
LOC: LAB.S 12:31
PROVIDERS: ATTEND Family Medicine
DX: C16.9 Malignant neoplasm of stomach, unspecified (principal); R53.83 Other fatigue; D64.9 Anemia, unspecified; E03.9 Hypothyroidism, unspecified; E11.9 Type 2 diabetes mellitus without complications; R61 Generalized hyperhidrosis; R63.4 Abnormal weight loss; R94.5 Abnormal results of liver function studies
CPT/HCPCS: 36415; 80053; 82626; 82728; 83036; 83540; 84439; 84443; 84466; 84480; 84481; 85025; 85610; 85730

== ENCOUNTER 2020-01-30 13:18 | Outpatient (CLI) | payer BC | END 2020-01-30 13:19 | disposition home or self-care (01) | LOC: DI 13:18 | PROVIDERS: ATTEND Family Medicine | DX: I51.7 Cardiomegaly (principal) | CPT/HCPCS: 93306 ==

== ENCOUNTER 2020-02-08 15:41 | Outpatient (CLI) | payer BC ==
[2020-02-08 20:08] LABS: BASOPHILS # (AUTO) 0.1 10^3/uL (0.0-0.1); BASOPHILS % (AUTO) 1.1 %; EOSINOPHILS # (AUTO) 0.1 10^3/uL (0.0-0.7); EOSINOPHILS % (AUTO) 1.3 %; HGB - HEMOGLOBIN 13.5 g/dL (12.0-16.0); LYMPHOCYTES # (AUTO) 1.4 10^3/uL (1.5-3.5); LYMPHOCYTES % (AUTO) 14.9 %; MEAN CORPUSCULAR HEMOGLOBIN 26.4 pg (27.0-31.0); MEAN CORPUSCULAR HGB CONC 31.8 g/dL (32.0-36.0); MEAN PLATELET VOLUME 9.9 fL (7.9-10.8); MONOCYTES # (AUTO) 1.2 10^3/uL (0.0-1.0); MONOCYTES % (AUTO) 13.2 %; NEUTROPHILS # (AUTO) 6.3 10^3/uL (1.5-6.6); NEUTROPHILS % (AUTO) 69.2 %; PLT - PLATELET COUNT 592 10^3/uL (130-450); RED BLOOD COUNT 5.12 10^6/uL (4.20-5.40); RED CELL DISTRIBUTION WIDTH 18.9 % (12.0-15.0)
[2020-02-08 20:21] LABS: ALBUMIN 2.8 g/dL (3.2-5.5); ALBUMIN/GLOBULIN RATIO 0.6 (1.0-2.2); BILIRUBIN,DIRECT 2.6 mg/dL (0.1-0.5); BILIRUBIN,TOTAL 3.7 mg/dL (0.2-1.0); CALCIUM 9.3 mg/dL (8.5-10.3); CREATININE 0.7 mg/dL (0.4-1.0); INR 1.2 (0.8-1.2); PT - PROTHROMBIN TIME 13.1 secs (9.9-12.6); TOTAL PROTEIN 7.7 g/dL (6.7-8.2)
[2020-02-08 20:34] LABS: PARTIAL THROMBOPLASTIN TIME 28.1 secs (24.9-33.3)
== END 2020-02-08 15:42 | disposition home or self-care (01) ==
LOC: LAB.S 15:41
PROVIDERS: ATTEND Family Medicine
DX: C16.9 Malignant neoplasm of stomach, unspecified (principal); C79.9 Secondary malignant neoplasm of unspecified site; D64.9 Anemia, unspecified; R06.00 Dyspnea, unspecified; R94.5 Abnormal results of liver function studies
CPT/HCPCS: 36415; 80053; 82248; 82728; 85025; 85610; 85730

== ENCOUNTER 2020-02-22 15:04 | Outpatient (CLI) | payer BC ==
[2020-02-22 20:09] LABS: BASOPHILS # (AUTO) 0.1 10^3/uL (0.0-0.1); BASOPHILS % (AUTO) 0.7 %; EOSINOPHILS % (AUTO) 0.3 %; HGB - HEMOGLOBIN 13.4 g/dL (12.0-16.0); LYMPHOCYTES % (AUTO) 10.1 %; MEAN CORPUSCULAR HEMOGLOBIN 25.5 pg (27.0-31.0); MEAN CORPUSCULAR HGB CONC 30.5 g/dL (32.0-36.0); MEAN CORPUSCULAR VOLUME 83.6 fL (81.0-99.0); MEAN PLATELET VOLUME 9.4 fL (7.9-10.8); MONOCYTES % (AUTO) 10.3 %; NEUTROPHILS # (AUTO) 7.8 10^3/uL (1.5-6.6); NEUTROPHILS % (AUTO) 78.1 %; PLT - PLATELET COUNT 696 10^3/uL (130-450); RED BLOOD COUNT 5.25 10^6/uL (4.20-5.40); RED CELL DISTRIBUTION WIDTH 23.4 % (12.0-15.0)
[2020-02-22 20:29] LABS: INR 1.3 (0.8-1.2); PT - PROTHROMBIN TIME 14.1 secs (9.9-12.6)
[2020-02-22 20:36] LABS: ALBUMIN 2.5 g/dL (3.2-5.5); ALBUMIN/GLOBULIN RATIO 0.5 (1.0-2.2); BILIRUBIN,TOTAL 11.5 mg/dL (0.2-1.0); CALCIUM 9.6 mg/dL (8.5-10.3); CREATININE 0.8 mg/dL (0.4-1.0); TOTAL PROTEIN 7.7 g/dL (6.7-8.2)
[2020-02-22 20:39] LABS: PARTIAL THROMBOPLASTIN TIME 29.6 secs (24.9-33.3)
[2020-02-22 21:30] LABS: PLATELET ESTIMATE, MANUAL INCREASED (>450,000) (NORMAL); PLATELET MORPHOLOGY NORMAL APPEARANCE (NORMAL)
== END 2020-02-22 15:05 | disposition home or self-care (01) ==
LOC: LAB.S 15:04
PROVIDERS: ATTEND Family Medicine
DX: C16.9 Malignant neoplasm of stomach, unspecified (principal); C79.9 Secondary malignant neoplasm of unspecified site; R53.83 Other fatigue; R06.00 Dyspnea, unspecified; D64.9 Anemia, unspecified; R94.5 Abnormal results of liver function studies
CPT/HCPCS: 36415; 80053; 82728; 83540; 84466; 85025; 85610; 85730

== ENCOUNTER 2020-03-04 16:16 | Outpatient (CLI) | payer BC ==
[2020-03-04 20:01] LABS: BASOPHILS # (AUTO) 0.1 10^3/uL (0.0-0.1); BASOPHILS % (AUTO) 1.2 %; EOSINOPHILS # (AUTO) 0.1 10^3/uL (0.0-0.7); EOSINOPHILS % (AUTO) 0.6 %; HGB - HEMOGLOBIN 15.4 g/dL (12.0-16.0); LYMPHOCYTES # (AUTO) 1.3 10^3/uL (1.5-3.5); LYMPHOCYTES % (AUTO) 12.5 %; MEAN CORPUSCULAR HEMOGLOBIN 26.4 pg (27.0-31.0); MEAN CORPUSCULAR HGB CONC 30.3 g/dL (32.0-36.0); MEAN CORPUSCULAR VOLUME 87.1 fL (81.0-99.0); MEAN PLATELET VOLUME 9.1 fL (7.9-10.8); MONOCYTES % (AUTO) 9.9 %; NEUTROPHILS # (AUTO) 7.6 10^3/uL (1.5-6.6); NEUTROPHILS % (AUTO) 75.2 %; PLT - PLATELET COUNT 641 10^3/uL (130-450); RED BLOOD COUNT 5.83 10^6/uL (4.20-5.40); RED CELL DISTRIBUTION WIDTH 25.9 % (12.0-15.0); WHITE BLOOD COUNT 10.1 x10^3/uL (4.8-10.8)
[2020-03-04 20:13] LABS: INR 1.4 (0.8-1.2); PT - PROTHROMBIN TIME 14.9 secs (9.9-12.6)
[2020-03-04 20:17] LABS: PLATELET ESTIMATE, MANUAL INCREASED (>450,000) (NORMAL); PLATELET MORPHOLOGY NORMAL APPEARANCE (NORMAL)
[2020-03-04 20:28] LABS: PARTIAL THROMBOPLASTIN TIME 30.4 secs (24.9-33.3)
[2020-03-04 20:53] LABS: ALBUMIN 2.5 g/dL (3.2-5.5); ALBUMIN/GLOBULIN RATIO 0.4 (1.0-2.2); BILIRUBIN,TOTAL 18.7 mg/dL (0.2-1.0); CALCIUM 9.6 mg/dL (8.5-10.3); TOTAL PROTEIN 8.2 g/dL (6.7-8.2)
== END 2020-03-04 16:17 | disposition home or self-care (01) ==
LOC: LAB.S 16:16
PROVIDERS: ATTEND Family Medicine
DX: C16.9 Malignant neoplasm of stomach, unspecified (principal); C79.9 Secondary malignant neoplasm of unspecified site; R53.83 Other fatigue; R06.00 Dyspnea, unspecified; D64.9 Anemia, unspecified; R94.5 Abnormal results of liver function studies
CPT/HCPCS: 36415; 80053; 82728; 83540; 84466; 85025; 85610; 85730

== ENCOUNTER 2020-03-13 17:01 | Emergency (ER) | payer BC, MEDICARE ==
[2020-03-13] MEDS ORDERED: FUROSEMIDE 20 MG TABLET PO STA (17:38)
--- NOTE | 2020-03-13 17:43 | ED Physician Documentation ---
History of Present Illness - Stated complaint Stated Complaint: SOA - Chief complaint Chief Complaint: Resp - History obtained from History obtained from: Patient - History of Present Illness Timing: Chronic Pain level max: 0 Pain level now: 0 - Additonal information Additional information: 70-year-old female presents to the emergency department complaining of bilateral lower extremity edema. She states her doctor called in a diuretic to the pharmacy for her but wanted her to be evaluated in the emergency department first. 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 She has outpatient labs scheduled for tonight. She does not want any further testing done in the emergency department. She is not hypoxic. Patient has chosen not to pursue palliative chemotherapy and instead is going to go on hospice. Review of Systems Ten Systems: 10 systems reviewed and negative Constitutional: denies: Fever Ears: denies: Ear pain Nose: denies: Rhinorrhea / runny nose, Congestion GI: denies: Nausea, Vomiting, Diarrhea Skin: denies: Rash Musculoskeletal: denies: Neck pain, Back pain Neurologic: denies: Headache PD PAST MEDICAL HISTORY - Past Medical History Past Medical History: Yes Cardiovascular: Hypertension, Murmur Respiratory: None Endocrine/Autoimmune: Type 2 diabetes, HyPOthyroidism GI: GI bleed, Colon polyps, Other : None HEENT: Other Psych: None Musculoskeletal: Osteoarthritis Derm: Other Other Past Medical History: stomach Ca with mets to liver - Past Surgical History Past Surgical History: Yes General: Appendectomy, Colonoscopy, EGD Ortho: Other /[employer]: Tubal ligation - Present Medications Home Medications: Ambulatory Orders Medication Instructions Recorded Confirmed Magnesium 240 mg PO DAILY 12/28/12 06/06/17 Vitamin B Complex [B Complex] 1 each PO DAILY 12/28/12 07/21/15 Metoprolol Tartrate [Lopressor] 25 mg PO DAILY 12/30/14 06/06/17 amLODIPine [Norvasc] 5 mg PO DAILY 12/30/14 06/06/17 dexAMETHasone [Decadron] 4 mg PO DAILY PRN 01/13/15 06/06/17 Cyclobenzaprine [Flexeril] 10 mg PO TID PRN #20 tablet 06/22/16 06/06/17 Ibuprofen [Motrin] 800 mg PO Q8H PRN #30 tablet 12/27/16 12/11/17 Levothyroxine [Synthroid] 1 DAILY 09/13/16 Hydrocodone/Acetaminophen [Amboy 1 each PO Q6HR PRN #14 tablet 12/15/19 5-325 Tablet] Ondansetron Odt [Zofran Odt] 4 mg TL Q6H PRN #10 tablet 12/15/19 Furosemide [Lasix] 20 mg PO DAILY #30 tablet 03/13/20 Spironolactone 25 mg PO DAILY #30 tablet 03/13/20 - Allergies Allergies/Adverse Reactions: Allergies Allergy/AdvReac Type Severity Reaction Status Date / Time nifedipine Allergy Intermediate swelling Verified 03/13/20 17:12 lisinopril Allergy Respiratory Verified 03/13/20 17:12 prednisone Allergy Itching Verified 03/13/20 17:12 - Social History Does the pt smoke?: No Smoking Status: Never smoker Does the pt drink ETOH?: No Does the pt have substance abuse?: No - Immunizations Immunizations are current?: Yes - POLST Patient has POLST: Yes PD ED PE NORMAL - Vitals Vital signs reviewed: Yes - General General: Alert and oriented X 3, No acute distress, Other (thin female, jaundiced) - HEENT HEENT: Moist mucous membranes - Neck Neck: Supple, no meningeal sign - Cardiac Cardiac: RRR - Respiratory Respiratory: No respiratory distress, Clear bilaterally - Abdomen Abdomen: Soft, Other (diffuse nodular, firm, enlarged liver. ) - Back Back: No CVA TTP - Derm Derm: Warm and dry - Extremities Extremities: Other (2+ bilateral lower extremity pitting edema to the knees.) - Neuro Neuro: Alert and oriented X 3 Results - Vitals Vitals: Vital Signs - 24 hr 03/13/20 03/13/20 17:06 17:19 Temperature 36.8 C 36.8 C Heart Rate 105 H 105 H Respiratory 17 16 Rate Blood Pressure 113/73 113/84 H O2 Saturation 97 98 Oxygen O2 Source Room air PD MEDICAL DECISION MAKING - ED course Complexity details: reviewed old records, considered differential, d/w patient ED course: Patient does not want any further work-up at this time. She is planning to pursue hospice care. No hypoxia. Declines x-rays. We will start her on spironolactone and Lasix. Compression stockings were also obtained from the med surge unit. Patient has outpatient labs scheduled and will perform these after she leaves the emergency department. Patient informed that she is welcome to return at any time. She would like to go home at this time and spend time with her family. This document was made in part using voice recognition software. While efforts are made to proofread this document, sound alike and grammatical errors may occur. Departure - Departure Disposition: Home, Self Care Clinical Impression: Liver metastases, Gastric mass, Peripheral edema Condition: Good Instructions: ED Edema Legs Bilateral Follow-Up: your,doctor in 1 week [Other] Prescriptions: Furosemide [Lasix] 20 mg PO DAILY #30 tablet Spironolactone 25 mg PO DAILY #30 tablet Comments: Return if you worsen. Follow-up with your doctor for further care. We will start you on to low-dose diuretics, elevating your legs and using the compression stockings should help as well. Make sure to follow-up with hospice.
[2020-03-13] MEDS ORDERED: SPIRONOLACTONE 25 MG TABLET PO STA (17:48)
[2020-03-13 19:58] VITALS: BP 123/60
== END 2020-03-13 19:55 | disposition home or self-care (01) ==
LOC: ED 17:01
DX: R60.0 Localized edema (principal); C16.9 Malignant neoplasm of stomach, unspecified; C78.7 Secondary malignant neoplasm of liver and intrahepatic bile duct; E11.9 Type 2 diabetes mellitus without complications
CPT/HCPCS: 99282; 99284; A9270

== ENCOUNTER 2020-03-13 18:38 | Outpatient (CLI) | payer BC, MEDICARE ==
[2020-03-13 19:09] LABS: BASOPHILS # (AUTO) 0.1 10^3/uL (0.0-0.1); BASOPHILS % (AUTO) 0.8 %; EOSINOPHILS # (AUTO) 0.1 10^3/uL (0.0-0.7); EOSINOPHILS % (AUTO) 0.5 %; HGB - HEMOGLOBIN 14.4 g/dL (12.0-16.0); LYMPHOCYTES # (AUTO) 1.1 10^3/uL (1.5-3.5); LYMPHOCYTES % (AUTO) 9.6 %; MEAN CORPUSCULAR HEMOGLOBIN 27.5 pg (27.0-31.0); MEAN CORPUSCULAR HGB CONC 31.7 g/dL (32.0-36.0); MEAN CORPUSCULAR VOLUME 86.6 fL (81.0-99.0); MEAN PLATELET VOLUME 8.3 fL (7.9-10.8); MONOCYTES # (AUTO) 1.2 10^3/uL (0.0-1.0); MONOCYTES % (AUTO) 9.8 %; NEUTROPHILS # (AUTO) 9.2 10^3/uL (1.5-6.6); NEUTROPHILS % (AUTO) 78.3 %; PLT - PLATELET COUNT 588 10^3/uL (130-450); RED BLOOD COUNT 5.24 10^6/uL (4.20-5.40); RED CELL DISTRIBUTION WIDTH 25.9 % (12.0-15.0); WHITE BLOOD COUNT 11.8 x10^3/uL (4.8-10.8)
[2020-03-13 19:16] LABS: INR 1.4 (0.8-1.2); PT - PROTHROMBIN TIME 15.5 secs (9.9-12.6)
[2020-03-13 19:20] LABS: PLATELET ESTIMATE, MANUAL INCREASED (>450,000) (NORMAL); PLATELET MORPHOLOGY NORMAL APPEARANCE (NORMAL)
[2020-03-13 19:23] LABS: PARTIAL THROMBOPLASTIN TIME 32.5 secs (24.9-33.3)
[2020-03-13 19:42] LABS: ALBUMIN 2.1 g/dL (3.2-5.5); ALBUMIN/GLOBULIN RATIO 0.4 (1.0-2.2); BILIRUBIN,TOTAL 22.4 mg/dL (0.2-1.0); CREATININE 1.8 mg/dL (0.4-1.0); TOTAL PROTEIN 7.4 g/dL (6.7-8.2)
== END 2020-03-13 18:39 | disposition home or self-care (01) ==
LOC: LAB 18:38
PROVIDERS: ATTEND Family Medicine
DX: C16.9 Malignant neoplasm of stomach, unspecified (principal); C79.9 Secondary malignant neoplasm of unspecified site; R53.83 Other fatigue; R06.00 Dyspnea, unspecified; D64.9 Anemia, unspecified; R94.5 Abnormal results of liver function studies
CPT/HCPCS: 36415; 80053; 82728; 83540; 84466; 85025; 85610; 85730